=== PATIENT | female | born 1965 | race Caucasian/White ===

== ENCOUNTER → 2022-08-25 | Outpatient (CLI) | payer MEDICARE ==
--- NOTE | 2022-08-25 14:20 | CT ---
EXAMINATION TYPE: CT urogram wo/w con CT DLP: 7832.90 mGycm, Automated exposure control for dose reduction was used. DATE OF EXAM: 08/25/2022 11:33 AM COMPARISON: CT chest 07/21/2022 CLINICAL INDICATION:Female, 57 years old with history of D41.02 left renal mass, Early detection of k idney cancer TECHNIQUE: Urogram with imaging of the abdomen and pelvis. Coronal and sagittal reformats were performed. 2D and 3D reconstructions are performed to assist visualization of the urinary tract on a separate workstat ion. Contrast used:80 mL of Isovue 300 without and with IV Contrast, Oral contrast used: None. FINDINGS: LOWER CHEST: No significant findings. GENITOURINARY: RIGHT KIDNEY AND URETER: Simple appearing right renal cyst measuring 15 mm. No calculi. No hydronephr osis or hydroureter. No renal mass or other lesions. No urothelial lesions: no filling defect, dilati on, stricture or wall thickening. LEFT KIDNEY AND URETER: Solid left renal mass in the medial aspect of the kidney just below the left renal sinuses measuring 5.2 x 5.7 x 5.9 cm. No calculi. No hydronephrosis or hydroureter. No urotheli al lesions: no filling defect, dilation, stricture or wall thickening. URINARY BLADDER: Not optimally distended. Limited evaluation secondary to partial filling of the blad dewayne with excreted IV contrast. No calculi or obvious mass. REPRODUCTIVE: Unremarkable. ABDOMEN LIVER: Unremarkable. GALLBLADDER AND BILE DUCTS: The gallbladder surgically absent. PANCREAS: Unremarkable. SPLEEN: Unremarkable. ADRENAL GLANDS: Unremarkable. STOMACH AND BOWEL: . No evidence of bowel obstruction. Appendix is normal. PERITONEUM: No evidence of pneumoperitoneum, free fluid, or adenopathy. VASCULATURE: No evidence of aortic aneurysm. MUSCULOSKELETAL: No acute osseous abnormalities. Mild disc degeneration changes are present throughou t the thoracolumbar spine. LYMPH NODES: No gross evidence for lymphadenopathy. Prominent ac hepatis lymph node measuring up t or 15 mm in short axis. SOFT TISSUE/ABDOMINAL WALL: Unremarkable IMPRESSION: Exophytic left renal mass measuring up to 5.7 cm. Urologic consultation recommended. No evidence of s uspicious lymphadenopathy at this time.
== END | disposition home or self-care (01) ==
LOC: RADCTMAIN 09:42
PROVIDERS: ATTEND Urology
DX: D41.02 Neoplasm of uncertain behavior of left kidney (principal); N28.89 Other specified disorders of kidney and ureter
CPT/HCPCS: 82565; 84520; 74178; 36415; 74400; Q9967

== ENCOUNTER → 2022-08-28 | Outpatient (CLI) | payer MEDICARE ==
[2022-08-28 16:14] LABS: Basophils # (A) 0.08 X 10*3/uL (0.00-0.10); Basophils % (A) 0.6 %; Eosinophils # (A) 0.39 X 10*3/uL (0.04-0.35); Eosinophils % (A) 3.2 %; HCT 44.4 % (37.2-46.3); HGB 14.7 g/dL (12.0-15.0); Immature Grans, Automated 0.5 %; Lymphocytes # (A) 2.39 X 10*3/uL (0.90-5.00); Lymphocytes % (A) 19.3 %; MCH 29.8 pg (27.0-32.0); MCHC 33.1 g/dL (32.0-37.0); MCV 90.1 fL (80.0-97.0); Monocytes # (A) 0.59 X 10*3/uL (0.20-1.00); Monocytes % (A) 4.8 %; NRBC Per 100 WBC 0 /100 WBCS (0.0-0.0); Neutrophils # (A) 8.87 X 10*3/uL (1.80-7.70); Neutrophils % (A) 71.6 %; Platelet Count 334 X 10*3/uL (140-440); RBC 4.93 X 10*6/uL (4.10-5.20); RDW 14.6 % (11.5-14.5); WBC 12.38 X 10*3/uL (4.50-10.00)
[2022-08-28 16:20] LABS: African American GFR (CKD) 60.8 (60.0-200.0); BUN/Creat Ratio 17.18 Ratio (12.00-20.00); Blood Urea Nitrogen 20.1 mg/dL (9.0-27.0); Calcium 9.8 mg/dL (8.7-10.3); Carbon Dioxide 25.4 mmol/L (20.0-27.5); Non-African American GFR(CKD) 52.4 (60.0-200.0)
[2022-08-28 18:27] LABS: Appearance,Urine Clear (Clear); Bilirubin,Urine Negative (Negative); Blood,Urine Negative (Negative); Color,Urine Yellow (Yellow); Ketones,Urine Negative (Negative); Nitrite,Urine Negative (Negative); PH, Urine 5.5 (5.0-8.0); Urobilinogen,Urine 0.2 (0.2,1.0)
[2022-08-28 18:33] LABS: Bacteria,Urine None Seen /HPF (None Seen)
== END | disposition home or self-care (01) ==
LOC: LABPAT 10:49
PROVIDERS: ATTEND Urology
DX: Z01.812 Encounter for preprocedural laboratory examination (principal); D41.02 Neoplasm of uncertain behavior of left kidney; R31.29 Other microscopic hematuria
CPT/HCPCS: 80048; 81001; 85025; 86850; 86900; 86901

== ENCOUNTER 2022-08-31 08:30 | Inpatient (IN) | payer MEDICARE ==
[2022-08-29 15:12] VITALS: BMI 45.4
[~2022-08-31 08:30] MED LIST: ceFAZolin 3 GM in SODIUM CHLORIDE 0.9% 100 ML IVPB PRN
[2022-08-31] MEDS ORDERED: LACTATED RINGERS 1,000 ML IV ONE ×2 (09:00)
[2022-08-31 09:37] LABS: Glucose,Whole Blood 133 mg/dL (70-110)
[2022-08-31] MEDS ORDERED: ONDANSETRON 4 MG/2 ML VIAL ONE (09:41)
--- NOTE | 2022-08-31 09:58 | P.HPIHPCON ---
History of Present Illness H&P Date: 08/31/22 Chief Complaint: left renal mass This is a 57 yo female with hx of 5.7 cm left renal mass. Discussed with her given this finding it is Highly concerning for renal cell carcinoma. Discussed with her the mass is fairly large and hilar in location and not amenable to a partial nephrectomy. . Discussed with her the risk which includes but not limited to bleeding, infection, injury to nearby organs which includes the spleen, pancreas, bowel. Risk of anesthesia was discussed with her. Discussed risk of heart attack, stroke, blood clots in even loss of life. Discussed with her potential of needing hemodialysis in the short-term and long-term. Discussed also the need a postoperative surveillance. Discussed also potential this could be a benign pathology. She understood all the risk and agreed Consent for Procedure: I have explained the operation/procedure to the patient, including the risks, benefits, side effects, alternative therapies (including not receiving the proposed treatment or service), the likelihood of the patient achieving his/her goals, and potential recuperation problems for the procedure/sedation/analgesia, as well as any blood products, if indicated. I also explained to the patient the risks, benefits and side effects of the alternatives, as well as the risks related to not receiving the proposed procedure, care, treatment, or services. Past Medical History Past Medical History: CVA/TIA, Hyperlipidemia, Hypertension, Pneumonia, Sleep Apnea/CPAP/BIPAP Additional Past Medical History / Comment(s): mass left kidney, increased SOB over last 2 years after having pneumonia with exertion,states 'left knee feels like its going to go out and almosts falls"-does not use any assistive devices.uses cpap,metabolic syndrome-insulin resistance,2009 CVA-no residual,kidney stones History of Any Multi-Drug Resistant Organisms: None Reported Past Surgical History: Cholecystectomy, Hysterectomy Additional Past Surgical History / Comment(s): kidney stone procedure,sinus surgery Past Anesthesia/Blood Transfusion Reactions: No Reported Reaction Additional Past Anesthesia/Blood Transfusion Reaction / Comment(s): no hx blood transfusion Smoking Status: Current every day smoker - Past Family History Mother Family Medical History: COPD Additional Family Medical History / Comment(s): with COPD Sister(s) Family Medical History: Cancer Additional Family Medical History / Comment(s): 1 sister brain CA. 1 sister CVA. 1 sister skin Father Family Medical History: Cancer Additional Family Medical History / Comment(s): skin Medications and Allergies Home Medications Medication Instructions Recorded Confirmed Type Aspirin 81 mg PO DAILY 08/29/22 08/31/22 History Atorvastatin [Lipitor] 20 mg PO HS 08/29/22 08/31/22 History FLUoxetine HCL [PROzac] 20 mg PO QAM 08/29/22 08/31/22 History Gabapentin 1,200 mg PO QAM 08/29/22 08/31/22 History Gabapentin 1,800 mg PO HS 08/29/22 08/31/22 History Glucosamine/Chondr Landaverde A Sod [Osteo 1 tab PO DAILY 08/29/22 08/31/22 History Bi-Flex Caplet] Losartan Potassium [Cozaar] 100 mg PO QAM 08/29/22 08/31/22 History Montelukast Sodium [Singulair] 10 mg PO HS 08/29/22 08/31/22 History Multivitamins, Thera [Multivitamin 1 tab PO DAILY 08/29/22 08/31/22 History (formulary)] [place]-3/Dha/Epa/Fish Oil [Fish Oil 1 each PO BID 08/29/22 08/31/22 History 1,000 mg Softgel] Omeprazole 40 mg PO HS 08/29/22 08/31/22 History lamoTRIgine [LaMICtal] 100 mg PO QAM 08/29/22 08/31/22 History metFORMIN HCL [Glucophage] 500 mg PO QAM 08/29/22 08/31/22 History Allergies Allergy/AdvReac Type Severity Reaction Status Date / Time bee venom protein (honey bee) Allergy Anaphylaxis Verified 08/31/22 09:08 [place] Allergy facial Uncoded 08/31/22 09:08 [place] Surgical - Exam - General no distress, no pain - Eyes normal ocular movement, no pale - ENT normal nares, normal mucosa - Abdomen Abdomen: soft, non tender Results - Labs Abnormal Lab Results - Last 24 Hours (Table) 08/31/22 Range/Units 09:35 POC Glucose (mg/dL) 133 H (70-110) mg/dL Assessment and Plan Assessment: OR for robotic left radical nephrectomy
[2022-08-31] MEDS ORDERED: ONDANSETRON 4 MG/2 ML VIAL IVP PRN (10:02)
[2022-08-31] MEDS ORDERED: MIDAZOLAM 2 MG/2 ML VIAL IVP ONE (10:06)
[2022-08-31] MEDS ORDERED: fentaNYL (PF) 50 MCG/ML 2 ML AMP IVP ONE (10:06)
[2022-08-31] MEDS ORDERED: NEOSTIGMINE 1 MG/ML 10 ML VIAL ONE (10:15)
[2022-08-31] MEDS ORDERED: SUCCINYLCHOLINE CHLORIDE 200 MG/10 ML VIAL IV ONE (10:15)
[2022-08-31] MEDS ORDERED: PROPOFOL 10 MG/ML 20 ML VIAL IV ONE (10:15)
[2022-08-31] MEDS ORDERED: GLYCOPYRROLATE 0.2 MG/ML 2 ML VIAL ONE (10:15)
[2022-08-31] MEDS ORDERED: ROCURONIUM 10 MG/ML (5 ML VIAL) IV ONE (10:15)
[2022-08-31] MEDS ORDERED: MIDAZOLAM 2 MG/2 ML VIAL ONE (10:15)
[2022-08-31] MEDS ORDERED: fentaNYL (PF) 50 MCG/ML 2 ML AMP ONE (10:15)
[2022-08-31] MEDS ORDERED: ePHEDrine 50 MG/ML 1 ML VIAL ONE (10:15)
[2022-08-31] MEDS ORDERED: ROPIVACAINE 5 MG/ML 30 ML VIAL ONE (10:15)
[2022-08-31] MEDS ORDERED: LIDOCAINE 2% INJ 20 MG/ML (2 ML VIAL) ONE (10:15)
[2022-08-31] MEDS ORDERED: DEXAMETHASONE SOD PHOSPHATE 4 MG/ML 1 ML VIAL IVP ONE (10:17)
[2022-08-31] MEDS ORDERED: ONDANSETRON 4 MG/2 ML VIAL IVP ONE (10:17)
[2022-08-31] MEDS ORDERED: BUPIVACAINE (PF) 0.5% 30 ML VIAL SQ ONE ×2 (10:48→12:33)
--- NOTE | 2022-08-31 12:29 | P.ANPRN ---
Procedure Note - Anesthesia - Nerve Block Performed Bilateral Erector Spinae Single Time Out Performed: Yes (1005) Date of Procedure: 08/31/22 Procedure Start Time: 10:06 Procedure Stop Time: 10:12 Location of Patient: PreOp Indication: Acute Post-Operative Pain, Requested by Surgeon Specifically requested for management of pain by : Bear Garcia Sedation Type: Sedate with meaningful contact maintained Preparation: Sterile Prep Position: Prone Catheter: None Needle Types: Pajunk Needle Gauge: 21 Ultrasound used to visualize needle placement: Yes Ultrasound used to observe medication spread: Yes Injectate: 0.5% Ropivacaine (see comment for volume) (20cc + 10cc nacl pf each side) Blood Aspirated: No Pain Paresthesia on Injection Noted: No Resistance on Injection: Normal Image Stored and Saved: Yes Events: Uneventful and Well Tolerated
--- NOTE | 2022-08-31 12:32 | P.OP ---
Date of Procedure: 08/31/22 Preoperative Diagnosis: Left renal mass Postoperative Diagnosis: same Procedure(s) Performed: Robotic left radical nephrectomy Implants: none Anesthesia: VERONICA Surgeon: Bear Garcia Estimated Blood Loss (ml): 50 Pathology: other (left kidney) Condition: stable Disposition: PACU Indications for Procedure: This is a 57 yo female with hx of 5.7 cm left renal mass. Discussed with her given this finding it is Highly concerning for renal cell carcinoma. Discussed with her the mass is fairly large and hilar in location and not amenable to a partial nephrectomy. . Discussed with her the risk which includes but not limited to bleeding, infection, injury to nearby organs which includes the spleen, pancreas, bowel. Risk of anesthesia was discussed with her. Discussed risk of heart attack, stroke, blood clots in even loss of life. Discussed with her potential of needing hemodialysis in the short-term and long-term. Discussed also the need a postoperative surveillance. Discussed also potential this could be a benign pathology. She understood all the risk and agreed Description of Procedure: The patient was taken to the operating room . General anesthesia was induced. She was prepped and draped in sterile fashion, she was placed in modified flank position . All pressure points were padded. The abdominal insufflation was achieved with the Veress needle. A 8 mm camera port was placed. Robotic trocars and urgent care physician assistant ports were placed under direct vision. The robot was docked into place. The colon was mobilized medially by incising along the white line of [place]. Next the spleen and the pancrease were mobilized. Once the bowel, spleen and pancreas were mobilized. At this time the gonadal vessel was visualized. Once the gonadal vessel and ureter was visualized , next after the psoas plane was developed the ureter and gonadal vessel was retracted anteriorly off the psoas muscle. Dissection proceeded cranially towards the renal hilum. The upper pole attachments were dissected. Care was taken to safely mobilize the kidney free of all visceral structures.The renal vessels were dissected. At this point the renal vessels were exposed. Next the renal hilum was ligated using the vascular stapler. The adrenal gland was mobilized. Lateral and remaining kidney attachments were released. The ureter was dissected further distally. The ureter was ligated using the vascular stapler. The kidney was placed in an Endo Catch bag. Hemostatic agent were applied to the surgical field. The robot was then de-docked and the specimen was then removed by extending the urgent care physician assistant port. Fascia was closed with one layer using #1 PDS, Skin was closed with subcuticular sutures and dermabond. The patient was awoken from general anesthesia in stable condition. Please refer to the final pathology report for final diagnosis
[2022-08-31] MEDS ORDERED: ALBUTEROL NEBULIZED 2.5 MG/3 ML INHALATION ONE (12:52)
[2022-08-31] MEDS ORDERED: DEXAMETHASONE SOD PHOSPHATE 10 MG/ML 1 ML VIAL IVP ONE (13:09)
[2022-08-31] MEDS ORDERED: MEPERIDINE 50 MG/ML SYRINGE IVP ONE ×2 (13:29→14:02)
[2022-08-31 16:17] LABS: Glucose,Whole Blood 132 mg/dL (70-110)
[2022-08-31] MEDS: HEPARIN SODIUM,PORCINE/PF 5,000 UNIT/0.5 ML SYRINGE SQ SCH ×2 (17:16→23:22)
[2022-08-31] MEDS: GABAPENTIN 300 MG CAP PO SCH (20:43)
[2022-08-31] MEDS: HYDROmorphone 1 MG/ML 1 ML SYRINGE IVP PRN (20:44)
[2022-08-31] MEDS: PANTOPRAZOLE 40 MG TABLET PO SCH (20:44)
[2022-08-31] MEDS: ATORVASTATIN 20 MG TAB PO SCH (20:44)
[2022-08-31] MEDS: MONTELUKAST 10 MG TAB PO SCH (20:44)
[2022-08-31 20:56] LABS: Glucose,Whole Blood 182 mg/dL (70-110)
[2022-09-01] MEDS: HYDROmorphone 1 MG/ML 1 ML SYRINGE IVP PRN ×2 (00:20→06:09)
[2022-09-01 06:56] LABS: Glucose,Whole Blood 147 mg/dL (70-110)
[2022-09-01] MEDS ORDERED: metFORMIN 500 MG TAB PO SCH (07:30)
[2022-09-01] MEDS: GABAPENTIN 400 MG CAP PO SCH (08:02)
[2022-09-01] MEDS: LOSARTAN 50 MG TAB PO SCH (08:02)
[2022-09-01] MEDS: HEPARIN SODIUM,PORCINE/PF 5,000 UNIT/0.5 ML SYRINGE SQ SCH ×2 (08:02→16:01)
--- NOTE | 2022-09-01 08:02 | P.PN ---
Progress Note - Text Progress Note Date: 09/01/22 The patient is in her first postoperative day from a robotic-assisted left radical nephrectomy. She is feeling relatively well but still some discomfort. She has not ambulated. She does not fill she's ready to be discharged home. Her abdomen is soft. Urine is clear. Vital signs are stable. I will discontinue her Reid and IV fluids. We'll place on oral pain medicine. We'll observe her another 24 hours.
[2022-09-01] MEDS: FLUoxetine HCL 20 MG CAP PO SCH (08:03)
[2022-09-01] MEDS: lamoTRIgine 100 MG TAB PO SCH (08:03)
[2022-09-01] MEDS ORDERED: BENZOCAINE/MENTHOL LOZENG 1 EACH LOZENGE MUCOUS MEM PRN (09:57)
[2022-09-01 10:48] LABS: HCT 41.7 % (37.2-46.3); HGB 12.9 g/dL (12.0-15.0); MCH 28.9 pg (27.0-32.0); MCHC 30.9 g/dL (32.0-37.0); MCV 93.5 fL (80.0-97.0); Mean Platelet Volume 9.2 fL (9.5-12.2); NRBC Per 100 WBC 0 /100 WBCS (0.0-0.0); Platelet Count 304 X 10*3/uL (140-440); RBC 4.46 X 10*6/uL (4.10-5.20); WBC 18.17 X 10*3/uL (4.50-10.00)
[2022-09-01 11:13] LABS: African American GFR (CKD) 25.5 (60.0-200.0); Anion Gap 17.1 mmol/L (10.00-18.00); BUN/Creat Ratio 14.29 Ratio (12.00-20.00); Blood Urea Nitrogen 34.3 mg/dL (9.0-27.0); Calcium 9.3 mg/dL (8.7-10.3); Carbon Dioxide 20.9 mmol/L (20.0-27.5); Potassium 5.2 mmol/L (3.5-5.5)
[2022-09-01 11:22] LABS: Glucose,Whole Blood 127 mg/dL (70-110)
[2022-09-01] MEDS: HYDROcodone/APAP 5-325MG 1 EACH TAB PO PRN ×2 (12:50→19:54)
[2022-09-01 16:19] LABS: Glucose,Whole Blood 110 mg/dL (70-110)
[2022-09-01] MEDS: PANTOPRAZOLE 40 MG TABLET PO SCH (19:54)
[2022-09-01] MEDS: GABAPENTIN 300 MG CAP PO SCH (19:54)
[2022-09-01] MEDS: MONTELUKAST 10 MG TAB PO SCH (19:54)
[2022-09-01] MEDS: ATORVASTATIN 20 MG TAB PO SCH (19:54)
[2022-09-01 20:00] LABS: Glucose,Whole Blood 136 mg/dL (70-110)
[2022-09-01 23:03] VITALS: PULSE 65
[2022-09-02] MEDS: HEPARIN SODIUM,PORCINE/PF 5,000 UNIT/0.5 ML SYRINGE SQ SCH ×2 (00:02→08:11)
[2022-09-02 06:41] LABS: Glucose,Whole Blood 112 mg/dL (70-110)
[2022-09-02 07:45] VITALS: BP 141/76; RESP 18; TEMP 98
[2022-09-02] MEDS: lamoTRIgine 100 MG TAB PO SCH (08:12)
[2022-09-02] MEDS: FLUoxetine HCL 20 MG CAP PO SCH (08:12)
[2022-09-02] MEDS: GABAPENTIN 400 MG CAP PO SCH (08:12)
[2022-09-02] MEDS: LOSARTAN 50 MG TAB PO SCH (08:12)
[2022-09-02] MEDS: HYDROcodone/APAP 5-325MG 1 EACH TAB PO PRN (08:12)
--- NOTE | 2022-09-02 10:04 | P.DS ---
Providers Date of admission: 08/31/22 08:30 Attending physician: Bear Garcia MD Primary care physician: Benita Kaur [place] [facility] Course: The patient was admitted to the hospital 08/31/22 for a robotic-assisted left radical nephrectomy. She has done well postoperatively. Her pain is been controlled. Her diet is been advanced. She was ambulating. Her wound looks good. She'll be discharged home. She'll be on a regular diet. Activities Limited. She's been encouraged to walk up. A prescription of [place] has been given. She'll follow up in the office on September 13. Patient Condition at Discharge: Good Plan - Discharge Summary Discharge Rx Participant: Yes New Discharge Prescriptions: New HYDROcodone/APAP 5-325MG [[place] 5-325] 1 tab PO Q4HR PRN #14 tab PRN Reason: Pain No Action Gabapentin 1,800 mg PO HS Gabapentin 1,200 mg PO QAM Atorvastatin [Lipitor] 20 mg PO HS Omeprazole 40 mg PO HS [place]-3/Dha/Epa/Fish Oil [Fish Oil 1,000 mg Softgel] 1 each PO BID Glucosamine/Chondr Landaverde A Sod [Osteo Bi-Flex Caplet] 1 tab PO DAILY lamoTRIgine [LaMICtal] 100 mg PO QAM Losartan Potassium [Cozaar] 100 mg PO QAM Aspirin 81 mg PO DAILY Montelukast Sodium [Singulair] 10 mg PO HS Multivitamins, Thera [Multivitamin (formulary)] 1 tab PO DAILY metFORMIN HCL [Glucophage] 500 mg PO QAM FLUoxetine HCL [PROzac] 20 mg PO QAM Discharge Medication List Aspirin 81 mg PO DAILY 08/29/22 [History] Atorvastatin [Lipitor] 20 mg PO HS 08/29/22 [History] FLUoxetine HCL [PROzac] 20 mg PO QAM 08/29/22 [History] Gabapentin 1,200 mg PO QAM 08/29/22 [History] Gabapentin 1,800 mg PO HS 08/29/22 [History] Glucosamine/Chondr Landaverde A Sod [Osteo Bi-Flex Caplet] 1 tab PO DAILY 08/29/22 [History] Losartan Potassium [Cozaar] 100 mg PO QAM 08/29/22 [History] Montelukast Sodium [Singulair] 10 mg PO HS 08/29/22 [History] Multivitamins, Thera [Multivitamin (formulary)] 1 tab PO DAILY 08/29/22 [History ] [place]-3/Dha/Epa/Fish Oil [Fish Oil 1,000 mg Softgel] 1 each PO BID 08/29/22 [History] Omeprazole 40 mg PO HS 08/29/22 [History] lamoTRIgine [LaMICtal] 100 mg PO QAM 08/29/22 [History] metFORMIN HCL [Glucophage] 500 mg PO QAM 08/29/22 [History] HYDROcodone/APAP 5-325MG [[place] 5-325] 1 tab PO Q4HR PRN #14 tab 09/02/22 [Rx] Follow up Appointment(s)/Referral(s): Bear Garcia MD [STAFF PHYSICIAN] - 1 Week Discharge Disposition: HOME SELF-CARE
--- NOTE | 2022-09-06 12:08 | CDI ---
Documentation Clarification Form Date: 09/06/2022 11:55:58 AM From: Guera Wilburn Admit Date: 08/31/2022 8:30:00 AM Patient Name: Selina Price Visit Number: [id number] Discharge Date: 09/02/2022 12:18:00 PM ATTENTION: The Clinical Documentation Specialists (CDI) and [facility] Coding Staff appreciate your assistance in clarifying documentation. Please respond to the clarification below the line at the bottom and electronically sign. The CDI & [facility] Coding staff will review the response and follow-up if needed. Please note: Queries are made part of the Legal Health Record. If you have any questions, please contact the author of this message via ITS. Dr. Bear Garcia The final diagnosis of the pathology report states Clear cell renal cell carcinoma, WHO grade 2 of the left kidney. Coding guidelines do not allow coding professionals to code based on pathology results; therefore, clarification is requested. History/risk factors: 57 year old female with a history of a 5.7 cm left renal mass concerning for carcinoma. Has a hx of CVA, Hyperlipidemia, HTN, Sleep Apnea Clinical Indicators: mass is fairly large and hilar in location, not amenable to a partial nephrectomy. Path report states Kidney, left radical nephrectomy: clear cell renal cell carcinoma, WHO grade 2. Tumor is confined to the kidney, margins negative. Treatment: robotic left radical nephrectomy Please clarify if you agree with the pathology report diagnosis of Renal Cell Carcinoma Left Kidney: [ X ] Yes [ ] No [ ] Other (please specify) [ ] Unable to determine MTDD
== END 2022-09-02 12:18 | disposition home or self-care (01) | DRG 658 ==
LOC: 2ORMAIN 08:30 → 4SSUR 14:38
PROVIDERS: ADMIT Urology; ATTEND Urology
PROC: 0TT14ZZ Resection of Left Kidney, Percutaneous Endoscopic Approach (ICD-10-PCS; principal; 2022-08-31 10:50)
PROC: 8E0W4CZ Robotic Assisted Procedure of Trunk Region, Percutaneous Endoscopic Approach (ICD-10-PCS; principal; 2022-08-31 10:50)
DX: C64.2 Malignant neoplasm of left kidney, except renal pelvis (principal); E88.81 Metabolic syndrome and other insulin resistance; E78.5 Hyperlipidemia, unspecified; I10 Essential (primary) hypertension; G47.30 Sleep apnea, unspecified; Z87.01 Personal history of pneumonia (recurrent); Z86.73 Personal history of transient ischemic attack (TIA), and cerebral infarction without residual deficits; Z79.82 Long term (current) use of aspirin; Z79.899 Other long term (current) drug therapy; Z79.84 Long term (current) use of oral hypoglycemic drugs
CPT/HCPCS: 64999; 76942; 80048; 85027; 86850; 86900; 86901; 88307; 94660; 94760

== ENCOUNTER → 2022-12-07 | Outpatient (CLI) | payer MEDICARE ==
--- NOTE | 2022-12-07 19:50 | US ---
EXAMINATION TYPE: US kidneys/renal and bladder DATE OF EXAM: 12/07/2022 COMPARISON: NONE CLINICAL INDICATION: Female, 57 years old with history of N18.31 CHR KIDNEY DISEASE; History renal CA , left kidney removed August 2022 EXAM MEASUREMENTS: Right Kidney: 11.4 x 5.6 x 5.4 cm Right Kidney: 1.8 x 1.4 x 1.6cm centrally located mid pole cyst. No hydronephrosis. Left Kidney: surgically absent Bladder: wnl Right Jet seen: yes IMPRESSION: Left kidney surgically absent. Right kidney shows no hydronephrosis. There is a centrally located mid pole cyst measuring 1.8 cm.
== END | disposition home or self-care (01) ==
LOC: RADUSWWP 14:02
PROVIDERS: ATTEND Internal Medicine
DX: N18.31 Chronic kidney disease, stage 3a (principal); N28.1 Cyst of kidney, acquired
CPT/HCPCS: 76770

== ENCOUNTER → 2023-03-13 | Outpatient (CLI) | payer MEDICARE ==
--- NOTE | 2023-03-13 13:33 | BD ---
EXAMINATION TYPE: Axial Bone Density DATE OF EXAM: 03/13/2023 CLINICAL HISTORY: 58 years old Female. ICD-10 CODE: Z12.31 Screening mammogram; Z78.0 Postmenopausal Height: 63 Weight: 278 FRAX RISK QUESTIONS: Secondary Osteoporosis: yes 3. Menopause before 45: yes renal cancer Current Tobacco Use: yes RISK FACTORS HISTORY OF: Postmenopausal woman: yes, at 42 Hyperparathyroidism: no Adrenal Insufficiency: no MEDICATIONS: Prednisone or other steroids: yes, inhaler for asthma and copd Additional Medications: bp meds, Prozac and gabapentin, hx of cancer, lt kidney, reflux meds, statin for cholesterol, senior multivitamin, Additional History: hypertension, anxiety, hx of renal ca, reflux, cholesterol, asthma copd EXAM MEASUREMENTS: Bone mineral densitometry was performed using the [employer] [place] System. Bone mineral density as measured about the Lumbar spine is: ----- L1-L4(G/cm2): 1.067 T Score Values are as follows: ----- L1: -0.9 ----- L2: -1.6 ----- L3: -1.1 ----- L4: -0.3 ----- L1-L4: -0.9 Z Score Values are as follows: ----- L1: -1.2 ----- L2: -1.9 ----- L3: -1.4 ----- L4: -0.6 ----- L1-L4: -1.2 Bone mineral density is her first bone density, baseline study. Bone mineral density about the R hip (g/cm2): 0.987 Bone mineral density about the L hip (g/cm2): 0.970 T Score values are as follows: -----R Neck: -0.7 -----L Neck: -1.4 -----R Total: -0.2 -----L Total: -0.3 Z Score values are as follows: -----R Neck: -0.4 -----L Neck: -1.0 -----R Total: -0.3 -----L Total: -0.4 Bone mineral density first bone density, baseline study. FRAX%s: The graph provided illustrates a 8.8% chance for a major osteoporotic fx and a 1.0% chance fo r the hips probability for fx in 10 years time. IMPRESSION: Osteopenia (T Score between -2.5 and -1). There is slightly increased risk of fracture and the patient may be considered for treatment. Re-Screen 2-5 years. NOTE: T-SCORE=SD OF THE YOUNG ADULT MEAN.
--- NOTE | 2023-03-14 09:15 | MM ---
Reason for Exam: Screening (asymptomatic). Last mammogram was performed 7 year(s) and 3 month(s) ago. Patient History: Menarche at age 12. Patient has no children. Left ovary removed at age 42. Hysterectomy at age 42. Other cancer, age 58. Maternal aunt had breast cancer. Risk Values: Asia 5 year model risk: 1.5%. NCI Lifetime model risk: 9.7%. Prior Study Comparison: 10/23/2014 Bilateral Screening Mammogram, Unknown. 12/07/2015 Bilateral Screening Mammogram, Unknown. Tissue Density: The breast tissue is almost entirely fat. Findings: Analyzed By CAD. There is no suspicious group of microcalcifications or new suspicious mass. Overall Assessment: Negative, BI-RAD 1 Management: Screening Mammogram of both breasts in [address] [facility] will attempt to contact patient to return for supplemental views and ultrasound if indicated. Patient should continue monthly self-breast exams. A clinical breast exam by your physician is recommended on an annual basis. This exam should not preclude additional follow-up of suspicious palpable abnormalities. Note on Asia scores and lifetime risk: 1. A Asia score greater than 3% is considered moderate risk. If this is the case, consider specialist referral to assess eligibility for a risk reducing agent. 2. If overall lifetime risk for the development of breast cancer is 20% or higher, the patient may qualify for future screening with alternating mammogram and breast MRI. Electronically signed and approved by: Noble Krause DO
== END | disposition home or self-care (01) ==
LOC: RADMAMWWP 08:41
PROVIDERS: ATTEND Family Medicine
DX: Z12.31 Encounter for screening mammogram for malignant neoplasm of breast (principal); M85.89 Other specified disorders of bone density and structure, multiple sites; Z78.0 Asymptomatic menopausal state; Z80.3 Family history of malignant neoplasm of breast
CPT/HCPCS: 77063; 77067; 77080

== ENCOUNTER → 2023-03-15 | Outpatient (CLI) | payer MEDICARE ==
[2023-03-15 11:38] LABS: African American GFR (CKD) 33 (>60 ml/min/1.73 sqM); Blood Urea Nitrogen 35 mg/dL (7-17); Non-African American GFR(CKD) 29 (>60 ml/min/1.73 sqM)
--- NOTE | 2023-03-15 14:40 | CT ---
EXAMINATION TYPE: CT ChestAbdPelvis wo con DATE OF EXAM: 03/15/2023 INDICATION: follow up ca COMPARISON: 08/25/2022 CT DLP: 1848 mGycm CONTRAST: Performed with Oral Contrast and with IV Contrast, patient injected with mL of . TECHNIQUE: Axial images at 5 mm thick sections. Reconstructed images in the coronal plane. Delayed images through the kidneys. FINDINGS: CT CHEST: Portion of the thyroid visualized is normal. There is diffuse groundglass opacities present bilaterally. Correlate for pulmonary edema. There is a punctate density within the lateral right mid lung, series 4 image 26 measuring 0.6 cm. Follow-up is recommended. There is a 1.7 cm lymph node in the pretracheal space. A 0.9 cm lymph node is in the aortic arch leve l. The ascending aorta diameter at the level of the main pulmonary artery is 3.7 cm. The main pulmonary artery diameter at the bifurcation is 4.1 cm. Correlate for pulmonary hypertension CT ABDOMEN: Liver: Normal Spleen: Normal Pancreas: Normal Adrenal glands: The adrenal glands are normal. Gallbladder: Surgically absent Kidneys: No recurrent mass is in the left renal bed are evident. The left kidney is surgically absent . Couple of punctate calcifications without obstruction may be within the right cortical medullary ju nction. Aorta: Vascular calcification is within the aorta. Inferior vena cava: Normal. CT PELVIS: Loops of bowel within the abdomen and pelvis are normal. There are loops of bowel which are incom pletely distended or lack oral contrast limiting their evaluation. Appendix: Not identified. No dilated tubular structure or inflammatory change is evident. Urinary bladder: Normal. Genitourinary structures: Uterus is not identified. Adnexa appear unremarkable. Osseous structures: No suspicious lytic or sclerotic lesions. No expansile lesions are evident. Facet degenerative changes are in the lower lumbar spine. IMPRESSION: 1. Groundglass opacities throughout bilateral lung he. Color for pulmonary edema. 2. Consider pulmonary hypertension. 3. 0.6 cm nodular density lateral right lung. Follow-up exam in 6 months is recommended. 4. Postnephrectomy changes left renal bed. No recurrent masses in the renal bed evident.
== END | disposition home or self-care (01) ==
LOC: RADCTMAIN 09:19
PROVIDERS: ATTEND Internal Medicine
DX: C64.2 Malignant neoplasm of left kidney, except renal pelvis (principal); J98.4 Other disorders of lung; R91.8 Other nonspecific abnormal finding of lung field; J81.1 Chronic pulmonary edema; Z90.5 Acquired absence of kidney
CPT/HCPCS: 36415; 71250; 74176; 82565; 84520

== ENCOUNTER → 2023-03-27 | Outpatient (CLI) | payer MEDICARE ==
[2023-03-28 08:38] LABS: Creatinine 24 Hour,Urine 2.04 g/24hr (0.80-1.80)
== END | disposition home or self-care (01) ==
LOC: LABWHC1 11:42
PROVIDERS: ATTEND Family Medicine
DX: N18.31 Chronic kidney disease, stage 3a (principal)
CPT/HCPCS: 81050; 82570; 84156

== ENCOUNTER → 2023-07-02 | Outpatient (CLI) | payer MEDICARE ==
[2023-07-02 12:59] LABS: Creatinine,Urine Random 86.1 mg/dL; Protein/Creatinine Ratio,Urine 0.418
[2023-07-02 15:35] LABS: Appearance,Urine Clear (Clear); Bilirubin,Urine Negative (Negative); Blood,Urine Trace (Negative); Color,Urine Yellow (Yellow); Ketones,Urine Negative (Negative); Nitrite,Urine Negative (Negative); PH, Urine 6.5; Specific Gravity,Urine 1.009 (1.001-1.030); Urobilinogen,Urine 0.2 E.U./DL
[2023-07-02 15:39] LABS: Albumin 4.3 g/dL (3.8-4.9); BUN/Creat Ratio 16.16 Ratio (12.00-20.00); Blood Urea Nitrogen 30.7 mg/dL (9.0-27.0); Carbon Dioxide 21.9 mmol/L (21.6-31.8); Chloride 103 mmol/L (96-109); Glucose 118 mg/dL (70-110); Phosphorus 3.4 mg/dL (2.4-5.1); Sodium 139 mmol/L (135-145)
[2023-07-02 15:43] LABS: Bacteria,Urine None Seen (None Seen)
[2023-07-03 00:06] LABS: Urine Creatinine 64.3 mg/dL (28.0-217.0)
== END | disposition home or self-care (01) ==
LOC: LABWHC1 09:32
PROVIDERS: ATTEND Internal Medicine
DX: N18.30 Chronic kidney disease, stage 3 unspecified (principal); N39.0 Urinary tract infection, site not specified; R80.9 Proteinuria, unspecified
CPT/HCPCS: 36415; 80069; 81001; 82043; 82570; 84156

== ENCOUNTER → 2023-09-14 | Outpatient (CLI) | payer MEDICARE ==
[2023-09-14 12:39] LABS: African American GFR (CKD) 26 (>60 ml/min/1.73 sqM); Blood Urea Nitrogen 32 mg/dL (7-17); Non-African American GFR(CKD) 22 (>60 ml/min/1.73 sqM)
--- NOTE | 2023-09-15 21:14 | CT ---
EXAMINATION TYPE: CT chest wo con DATE OF EXAM: 09/14/2023 COMPARISON: HISTORY: Malignant neoplasm of LT kidney. Observe for mets. CT DLP: 646.20 mGycm, Automated exposure control for dose reduction was used. CONTRAST: None TECHNIQUE: Axial images were obtained at 5 mm thick sections. Reconstructed images are reviewed on [employer] computer in the coronal plane. FINDINGS: Portion of the thyroid visualized is normal. A faint 0.5 cm nodule medially within the right mid lung. Series 6 image 25. There is a 0.9 cm pleura l-based density posterior medial left lung. Series 6 image 32. Faint density and groundglass opacity measuring 0.5 cm cyst in the medial right mid lung. Series 6 image 32. Scattered groundglass opacity to the bilateral he. The 6 mm nodule within the lateral right lung appears smaller than comparison. The density within the posterior medial left lung base is smaller than comparison. No enlarged mediastinal or hilar adenopathy is evident. The ascending aorta diameter at the level o f the main pulmonary artery is 4.0 cm. The main pulmonary artery diameter at the bifurcation is 3.6 cm. Mild coronary artery calcification is present. Limited CT sections are obtained through the upper abdomen. Abdomen is essentially unremarkable. IMPRESSION: 1. Scattered small bilateral lung nodules and groundglass opacities. Follow-up CT chest in 6 months i s recommended.
== END | disposition home or self-care (01) ==
LOC: RADCTMAIN 11:49
PROVIDERS: ATTEND Internal Medicine
DX: C64.2 Malignant neoplasm of left kidney, except renal pelvis (principal); R91.8 Other nonspecific abnormal finding of lung field; Z71.3 Dietary counseling and surveillance
CPT/HCPCS: 71250; 82565; 84520

== ENCOUNTER → 2023-09-25 | Outpatient (CLI) | payer MEDICARE | END | disposition home or self-care (01) | LOC: LABWHC1 10:29 | PROVIDERS: ATTEND Internal Medicine | DX: Z53.9 Procedure and treatment not carried out, unspecified reason (principal) ==

== ENCOUNTER → 2023-09-25 | Outpatient (CLI) | payer MEDICARE ==
--- NOTE | 2023-09-25 11:11 | CA ---
Exercise Stress Test Report Name: Selina Price Exam Date: 09/25/2023 09:28 Exam Location: [place] Stress Ht (in): 64 Wt (lb): 275 BSA: 2.24 Ordering Phys: Priya Mejia DO Referring Phys: Aggie Sunshine [facility] Technologist: Karla Gamez RDCS Age: 58 Gender: F : 1965 Procedure CPT: Indications: R07.9 CHEST PAIN ICD-10 Codes: Patient History: CHEST PAIN, DIFFICULTY IN BREATHING, PALPITATIONS, NUMBNESS IN FACE/NECK, HTN, TIA, HYPERCHOLESTEROLEMIA, FAMILY HX OF HEART DISEASE, CURRENT SMOKER, COPD Medications: Meds past 24 hrs: Pretest Chest Pain: STRESS TEST Demetrius Protocol Exercise Duration (min:sec): 02:[address] Depressions (mm): 0 Angina Score: 0 Cabrera Score: 2.85 Resting HR (bpm): 80 Peak HR (bpm): 140 Resting BP (mmHg): 102 / 68 Peak BP (mmHg): 155 / 66 MPHR: 164 Target HR: 139 % MPHR: 85 METS: 4.7 Total Dose: Peak Dose: Atropine: Double Product: 37843 BP Response: Stress Termination: TARGET HR/MAX EXERTION Stress Symptoms: DYSPNEA Stress Summary: The patient's target heart rate was achieved ECG ANALYSIS Resting ECG: Sinus rhythm. Normal conduction. No arrhythmias. Normal repolarization. Stress ECG: No ECG evidence of ischemia with exercise. CONCLUSIONS 1. Poor exercise tolerance 2. Normal electrocardiographic response to exercise with no evidence of exercise-induced ischemia Dr. Vijay Vogel MD (Electronically Signed) Final Date: 25 Sep 2023 11:10
--- NOTE | 2023-09-25 11:13 | CA ---
Transthoracic Echo Report Name: Selina Price Age: 58 Gender: F : 1965 Exam Date: 09/25/2023 08:41 Exam Location: [place] [facility] Ht (in): 64 Wt (lb): 275 Ordering Physician: Priya Mejia DO Attending/Referring Phys: Aggie Sunshine NPC Librarian Helper Ernestina Jimenes RDCS Procedure CPT: Indications: R07.9 CHEST PAIN Cardiac Hx: Technical Quality: Technically difficult study Contrast 1: Definity Total Dose (mL): 2 Contrast 2: Total Dose (mL): MEASUREMENTS (Male / Female) Normal Values 2D ECHO LVOT Diameter 2.0 cm Aortic Root Diameter 3.0 cm LV Diastolic Volume MOD BP 125.5 cm??? 67 - 155 / 56 - 104 cm??? LV Systolic Volume MOD BP 45.1 cm??? 22 - 58 / 19 - 49 cm??? LV Ejection Fraction MOD BP 64.0 % >= 55 % LV Cardiac Index MOD BP 2134.5 cm???/min???m??? LV Diastolic Volume MOD 4C 134.9 cm??? LV Systolic Volume MOD 4C 49.2 cm??? LV Ejection Fraction MOD 4C 63.6 % LV Cardiac Index MOD 4C 2277.1 cm???/min???m??? LV Diastolic Length 4C 8.4 cm LV Systolic Length 4C 6.2 cm LV Diastolic Volume MOD 2C 112.2 cm??? LV Systolic Volume MOD 2C 40.9 cm??? LV Ejection Fraction MOD 2C 63.5 % LV Cardiac Index MOD 2C 1893.4 cm???/min???m??? LV Diastolic Length 2C 8.0 cm LV Systolic Length 2C 6.1 cm Ascending Aorta Diameter 3.4 cm DOPPLER AV Peak Velocity 173.3 cm/s AV Peak Gradient 12.0 mmHg AV Mean Velocity 120.1 cm/s AV Mean Gradient 6.3 mmHg AV Velocity Time Integral 38.8 cm LVOT Peak Velocity 131.6 cm/s LVOT Peak Gradient 6.9 mmHg LVOT Velocity Time Integral 27.3 cm LVOT Stroke Volume 88.4 cm??? LVOT Stroke Volume Index 39.5 ml/m??? LVOT Cardiac Index 2349.2 cm???/min???m??? AV Area Cont Eq vti 2.3 cm??? AV Area Cont Eq pk 2.5 cm??? Mitral E Point Velocity 108.1 cm/s Mitral A Point Velocity 91.1 cm/s Mitral E to A Ratio 1.2 MV Deceleration Time 222.6 ms MV E' Velocity 7.6 cm/s Mitral E to MV E' Ratio 14.3 PV Peak Velocity 130.1 cm/s PV Peak Gradient 6.8 mmHg FINDINGS Left Ventricle Left ventricular ejection fraction is estimated at 55-60 %. Moderately increased left ventricular diastolic volume. Left ventricular wall thickness normal. No obvious regional wall motion abnormalities. Right Ventricle Normal right ventricular size and function. Unable to estimate the right ventricular systolic pressure. Right Atrium Right atrium not well visualized. Left Atrium Normal left atrial size. Mitral Valve Structurally normal mitral valve. No evidence for mitral valve prolapse. No mitral stenosis. Trace mitral regurgitation. Aortic Valve Aortic valve not well visualized. No aortic valve stenosis or regurgitation. Tricuspid Valve Structurally normal tricuspid valve. No tricuspid stenosis. No tricuspid regurgitation. Pulmonic Valve Pulmonic valve not well visualized. No pulmonic stenosis. Pericardium Trace pericardial effusion located anteriorly. Echo free space anterior to the right ventricle likely represents a fat pad. Aorta Normal size aortic root and proximal ascending aorta. CONCLUSIONS Technically difficult study. Definity ECHO contrast used for improved visualization of the endocardial borders (inadequate visualization of two or more contiguous segments). Normal limits close size and systolic function Valvular structures were not well-visualized Very limited Doppler study Previewed by: Dr. Vijay Vogel MD (Electronically Signed) Final Date: 25 Sep 2023 11:12
[2023-09-25 21:26] LABS: Albumin 4.6 g/dL (3.8-4.9); BUN/Creat Ratio 14.14 Ratio (12.00-20.00); Blood Urea Nitrogen 29.7 mg/dL (9.0-27.0); Calcium 9.8 mg/dL (8.7-10.3); Carbon Dioxide 19.7 mmol/L (21.6-31.8); Chloride 101 mmol/L (96-109); Glucose 128 mg/dL (70-110); Phosphorus 3.2 mg/dL (2.4-5.1); Potassium 3.8 mmol/L (3.5-5.5); Sodium 142 mmol/L (135-145)
[2023-09-25 21:35] LABS: Appearance,Urine Clear (Clear); Bilirubin,Urine Negative (Negative); Blood,Urine Negative (Negative); Color,Urine Yellow (Yellow); Ketones,Urine Negative (Negative); Nitrite,Urine Negative (Negative); Specific Gravity,Urine 1.017 (1.001-1.030); Urobilinogen,Urine 0.2 E.U./DL
== END | disposition home or self-care (01) ==
LOC: RADECHMAIN 08:21
PROVIDERS: ATTEND Family Medicine
DX: R07.9 Chest pain, unspecified (principal)
CPT/HCPCS: 93017; 93306; 80069; 81003; 82043; 82570; 36415; Q9957

== ENCOUNTER → 2023-10-02 | Outpatient (CLI) | payer MEDICARE ==
--- NOTE | 2023-10-04 08:21 | CT ---
EXAMINATION TYPE: CT abdomen pelvis wo con CT DLP: 1448.9 mGycm, Automated exposure control for dose reduction was used. DATE OF EXAM: 10/02/2023 8:50 AM COMPARISON: 03/15/2023 CLINICAL INDICATION:Female, 58 years old with history of C64.2 RENAL CELL CANCER; Renal Cell Cancer TECHNIQUE: Axial CT abdomen pelvis wo con;Sagittal and coronal reformats were created on a separate workstation. Contrast used: mL of , (none if empty) Oral contrast used: without Oral Contrast (none if empty) FINDINGS: LOWER CHEST: Resolution of prior groundglass opacities. Is mildly enlarged for size. ABDOMEN LIVER: Unremarkable GALLBLADDER AND BILE DUCTS: Gallbladder surgically removed. PANCREAS: Unremarkable. SPLEEN: Unremarkable. ADRENAL GLANDS: Unremarkable. KIDNEYS AND URETERS: Absent left kidney. No abnormal margin soft tissue in the surgical bed. Right ki dney is without evidence for hydronephrosis. Small 2 mm nonobstructing calculus. PELVIS BLADDER: Unremarkable REPRODUCTIVE: Unremarkable. ABDOMEN & PELVIS STOMACH AND BOWEL: No evidence of bowel obstruction. PERITONEUM/RETROPERITONEUM: No evidence of pneumoperitoneum or free fluid. VASCULATURE: No evidence of aortic aneurysm. MUSCULOSKELETAL: No acute osseous abnormalities LYMPH NODES: No gross evidence for lymphadenopathy. SOFT TISSUE/ABDOMINAL WALL: Diastases of the rectus abdominis. Umbilical hernia. IMPRESSION: Postsurgical changes of left kidney nephrectomy. No evidence for lymphadenopathy or recurrence.
== END | disposition home or self-care (01) ==
LOC: RADCTMAIN 08:27
PROVIDERS: ATTEND Internal Medicine
DX: C64.2 Malignant neoplasm of left kidney, except renal pelvis (principal); Z71.3 Dietary counseling and surveillance; Z90.5 Acquired absence of kidney
CPT/HCPCS: 74176

== ENCOUNTER → 2024-01-30 | Outpatient (CLI) | payer MEDICARE ==
[2024-01-30 15:54] VITALS: BP 132/74; PULSE 64; RESP 16; TEMP 98; BMI 45.9
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
[2024-01-30 17:29] LABS: Partial Thromboplastin Time 26.7 sec (22.0-30.0); Prothrombin Time 10.7 sec (10.0-12.5)
[2024-01-31 01:56] LABS: HCT 44.2 % (37.2-46.3); HGB 14.4 g/dL (12.0-15.0); MCH 29.3 pg (27.0-32.0); MCHC 32.6 g/dL (32.0-37.0); MCV 89.8 FL (80.0-97.0); NRBC Per 100 WBC 0 X 10*3/uL (0.00-0.01); Platelet Count 325 X 10*3/uL (140-440); RBC 4.92 X 10*6/uL (4.10-5.20); RDW 15.8 % (11.5-14.5); WBC 13.72 X 10*3/uL (4.50-10.00)
[2024-01-31 02:48] LABS: Prealbumin 30.1 mg/dL (18.0-42.0)
[2024-01-31 03:05] LABS: % Iron Saturation 17.14 (12.00-45.00); ALT 22 U/L (8-44); AST 20 U/L (13-35); Albumin 4.5 g/dL (3.8-4.9); Albumin/Globulin Ratio 1.61 Ratio (1.60-3.17); Alkaline Phosphatase 170 U/L (41-126); BUN/Creat Ratio 16.35 Ratio (12.00-20.00); Blood Urea Nitrogen 32.7 mg/dL (9.0-27.0); Calcium 9.7 mg/dL (8.7-10.3); Carbon Dioxide 21.9 mmol/L (21.6-31.8); Chloride 103 mmol/L (96-109); Chol/HDL Ratio 4.66 Ratio; Globulin 2.8 g/dL (1.6-3.3); Glucose 105 mg/dL (70-110); Iron 60 UG/DL (50-170); Magnesium 1.5 mg/dL (1.5-2.4); Phosphorus 3.3 mg/dL (2.4-5.1); Sodium 141 mmol/L (135-145); Total Bilirubin 0.3 mg/dL (0.3-1.2); Total Iron Binding Capacity 350 UG/DL (228-460); Total Protein 7.3 g/dL (6.2-8.2)
[2024-01-31 14:47] LABS: Zinc, Serum 138 ug/dL (60-130)
[2024-02-01 13:21] LABS: Vit B1(Thiamine) 150 ug/L (38-122)
[2024-02-02 09:44] LABS: Anabasine Urine <2.0 ng/mL (<2.0)
[2024-02-04 09:47] LABS: Vitamin A 95 ug/dL (38-106)
[2024-02-08 07:40] LABS: Selenium 110 mcg/L (63-160)
== END ==
LOC: BARWHC3 14:28
PROVIDERS: ATTEND Surgery Plastic and Reconstructive Surgery
DX: E66.01 Morbid (severe) obesity due to excess calories (principal); E89.1 Postprocedural hypoinsulinemia; D50.8 Other iron deficiency anemias; D50.9 Iron deficiency anemia, unspecified; K91.2 Postsurgical malabsorption, not elsewhere classified; E44.0 Moderate protein-calorie malnutrition; E45 Retarded development following protein-calorie malnutrition; K74.1 Hepatic sclerosis; E55.9 Vitamin D deficiency, unspecified; N19 Unspecified kidney failure; T56.894A Toxic effect of other metals, undetermined, initial encounter; K50.90 Crohn's disease, unspecified, without complications; Z68.42 Body mass index [BMI] 45.0-49.9, adult; Z91.030 Bee allergy status; Z91.018 Allergy to other foods
CPT/HCPCS: 84255; 84134; 84425; 80061; 80053; 82607; 82728; 82525; 82746; 83540; 83550; 83735; 84100; 84443; 84590; 84630; 85027; 85610; 85730; 82306; 83970; 83036; 80307; 93005; G0480; G0463; 80323; 99211

== ENCOUNTER 2024-03-10 07:48 | Day surgery (SDC) | payer MEDICARE ==
[2024-03-06 12:35] VITALS: BMI 47.2
[2024-03-10] MEDS: IV FLUID CONTINUATION 1,000 ML IV ONE (08:04)
--- NOTE | 2024-03-10 08:13 | P.GSHP ---
History of Present Illness H&P Date: 03/10/24 CHIEF COMPLAINT: GERD HISTORY OF PRESENT ILLNESS: The patient is a 59-year-old female who presents reports gastroesophageal reflux disease. Upper endoscopy was offered for further evaluation and management. PAST MEDICAL HISTORY: Please see list. PAST SURGICAL HISTORY: Please see list. MEDICATIONS: Please see list. ALLERGIES: Please see list. SOCIAL HISTORY: No illicit drug use FAMILY HISTORY: No reports of Crohn disease or ulcerative colitis. REVIEW OF ORGAN SYSTEMS: CONSTITUTIONAL: No reports of fevers or chills. GI: Denies any blood in stools or constipation. PHYSICAL EXAM: VITAL SIGNS: Stable GENERAL: Well-developed and pleasant in no acute distress. HEENT: No scleral icterus. Extraocular movements grossly intact. Moist buccal mucosa. NECK: Supple without lymphadenopathy. CHEST: Unlabored respirations. Equal bilateral excursions. CARDIOVASCULAR: Regular rate and rhythm. Distal 2+ pulses. ABDOMEN: Soft, nondistended. MUSCULOSKELETAL: No clubbing, cyanosis, or edema. ASSESSMENT: 1. Gastroesophageal reflux disease PLAN: 1. Recommend proceeding with an upper endoscopy Past Medical History Past Medical History: Cancer, CVA/TIA, GERD/Reflux, Hyperlipidemia, Hypertension, Pneumonia, Skin Disorder, Sleep Apnea/CPAP/BIPAP Additional Past Medical History / Comment(s): increased SOB over last 2 years after having pneumonia with exertion,states 'left knee feels like its going to go out and almosts falls"-does not use any assistive devices.uses cpap,metabolic syndrome-insulin resistance pre diabetic,2008 CVA-no residual,kidney stones, Left Kidney mass Cancer, psorasis History of Any Multi-Drug Resistant Organisms: None Reported Past Surgical History: Cholecystectomy, Hysterectomy Additional Past Surgical History / Comment(s): kidney stone procedure,sinus surgery, Left nephrectomy Past Anesthesia/Blood Transfusion Reactions: No Reported Reaction Additional Past Anesthesia/Blood Transfusion Reaction / Comment(s): no hx blood transfusion Past Psychological History: Anxiety, Bipolar, Depression Additional Psychological History / Comment(s): reports suicide attempt in 2021 with no cureent thoughts of self harm Smoking Status: Current every day smoker Past Alcohol Use History: None Reported Additional Past Alcohol Use History / Comment(s): started smoking at age 23- <1ppd Past Drug Use History: None Reported - Past Family History Mother Family Medical History: COPD Additional Family Medical History / Comment(s): from COPD Sister(s) Family Medical History: Cancer Additional Family Medical History / Comment(s): 1 sister brain CA. 1 sister CVA. 1 sister skin Father Family Medical History: Cancer Additional Family Medical History / Comment(s): skin Medications and Allergies Home Medications Medication Instructions Recorded Confirmed Type Aspirin 81 mg PO DAILY 08/29/22 03/06/24 History Atorvastatin [Lipitor] 20 mg PO HS 08/29/22 03/10/24 History FLUoxetine HCL [PROzac] 60 mg PO QAM 08/29/22 03/10/24 History Gabapentin 1,200 mg PO HS 08/29/22 03/10/24 History Gabapentin 600 mg PO QAM 08/29/22 03/10/24 History Losartan Potassium [Cozaar] 100 mg PO QAM 08/29/22 03/10/24 History Montelukast Sodium [Singulair] 10 mg PO HS 08/29/22 03/10/24 History Multivitamins, Thera [Multivitamin 1 tab PO DAILY 08/29/22 03/06/24 History (formulary)] Fenton-3/Dha/Epa/Fish Oil [Fish Oil 1 each PO HS 08/29/22 03/06/24 History 1,000 mg Softgel] Omeprazole 40 mg PO HS 08/29/22 03/10/24 History lamoTRIgine [LaMICtal] 100 mg PO QAM 08/29/22 03/10/24 History Chlorthalidone 50 mg PO DAILY 01/30/24 03/10/24 History Empagliflozin [Jardiance] 1 tab PO DAILY 01/30/24 03/10/24 History Ubidecarenone [Co Q-10] 100 mg PO DAILY 01/30/24 03/06/24 History Black Seed Oil 1,500 mg PO DAILY 03/06/24 03/06/24 History Allergies Allergy/AdvReac Type Severity Reaction Status Date / Time bee venom protein (honey bee) Allergy Anaphylaxis Verified 03/10/24 08:02 sharon liquor Allergy facial Uncoded 03/10/24 08:02 flushing
[2024-03-10 08:14] VITALS: RESP 16; TEMP 96.9
[2024-03-10] MEDS: LACTATED RINGERS 1,000 ML IV SCH (08:14)
[2024-03-10 08:15] LABS: Glucose,Whole Blood 117 mg/dL (70-110)
[2024-03-10] MEDS ORDERED: LIDOCAINE 1% INJ 10MG/ML (20 ML MDV) ONE (08:15)
[2024-03-10] MEDS ORDERED: PROPOFOL 10 MG/ML 20 ML VIAL IV ONE (08:15)
--- NOTE | 2024-03-10 08:29 | P.PCN ---
Date of Procedure: 03/10/24 Description of Procedure: PREOPERATIVE DIAGNOSIS: Gastroesophageal reflux disease. Morbid obesity. POSTOPERATIVE DIAGNOSIS: Gastroesophageal reflux disease. Morbid obesity. Gastritis. Gastroparesis OPERATION: Esophagogastroduodenoscopy with biopsies along esophagus, antrum and duodenum SURGEON: Kirstin Pham MD ANESTHESIA: MAC. INDICATIONS: The patient is a 59-year-old female who presents with reflux disease. Benefits and risks of the procedure were described. Informed consent was obtained. DESCRIPTION: The patient was brought into the endoscopy suite and laid in the left lateral decubitus position. An Olympus gastroscope was passed along the posterior oropharynx down to the distal esophagus where the squamocolumnar junction was encountered at 40 cm from the incisors. The stomach was entered and no bile reflux was found. Additional findings are listed below. Biopsies with cold forceps were obtained of the antrum. The first through third portion of the duodenum was examined. Retroflexion of the scope confirmed Hill grade 2 lower esophageal valve. The squamocolumnar junction demonstrated LA grade B erosive esophagitis. The stomach was desufflated. The patient tolerated the procedure well. FINDINGS: Squamocolumnar junction 40 cm from the incisors. Diaphragmatic hiatus at 40 cm. Hill grade 2 lower esophageal valve. LA grade B erosive esophagitis. Biopsies obtained Biopsies obtained of the duodenum. Chronic gastritis with biopsies obtained. Retained gastric contents as patient is on Jardiance for diabetic gastroparesis RECOMMENDATIONS: Upper endoscopy as needed. Plan - Discharge Summary New Discharge Prescriptions: Continue Gabapentin 1,200 mg PO HS Gabapentin 600 mg PO QAM Atorvastatin [Lipitor] 20 mg PO HS Omeprazole 40 mg PO HS Cerulean-3/Dha/Epa/Fish Oil [Fish Oil 1,000 mg Softgel] 1 each PO HS lamoTRIgine [LaMICtal] 100 mg PO QAM Losartan Potassium [Cozaar] 100 mg PO QAM Aspirin 81 mg PO DAILY Empagliflozin [Jardiance] 1 tab PO DAILY Black Seed Oil 1,500 mg PO DAILY Montelukast Sodium [Singulair] 10 mg PO HS Multivitamins, Thera [Multivitamin (formulary)] 1 tab PO DAILY FLUoxetine HCL [PROzac] 60 mg PO QAM Ubidecarenone [Co Q-10] 100 mg PO DAILY Chlorthalidone 50 mg PO DAILY Discharge Medication List Aspirin 81 mg PO DAILY 08/29/22 [History] Atorvastatin [Lipitor] 20 mg PO HS 08/29/22 [History] FLUoxetine HCL [PROzac] 60 mg PO QAM 08/29/22 [History] Gabapentin 1,200 mg PO HS 08/29/22 [History] Gabapentin 600 mg PO QAM 08/29/22 [History] Losartan Potassium [Cozaar] 100 mg PO QAM 08/29/22 [History] Montelukast Sodium [Singulair] 10 mg PO HS 08/29/22 [History] Multivitamins, Thera [Multivitamin (formulary)] 1 tab PO DAILY 08/29/22 [History] Cerulean-3/Dha/Epa/Fish Oil [Fish Oil 1,000 mg Softgel] 1 each PO HS 08/29/22 [History] Omeprazole 40 mg PO HS 08/29/22 [History] lamoTRIgine [LaMICtal] 100 mg PO QAM 08/29/22 [History] Chlorthalidone 50 mg PO DAILY 01/30/24 [History] Empagliflozin [Jardiance] 1 tab PO DAILY 01/30/24 [History] Ubidecarenone [Co Q-10] 100 mg PO DAILY 01/30/24 [History] Black Seed Oil 1,500 mg PO DAILY 03/06/24 [History] Follow up [facility]ment(s[facility]Ref[facility] [place] [facility] - 04/02/24 3:00 pm Patient Instructions/Handouts: Diabetic Gastroparesis (IP), Gastritis (GEN) Discharge Disposition: HOME SELF-CARE
[2024-03-10 08:49] VITALS: BP 109/62; PULSE 60
== END 2024-03-10 09:05 | disposition home or self-care (01) ==
LOC: ORWHC2ENDO 07:48
PROVIDERS: ATTEND Surgery Plastic and Reconstructive Surgery
DX: K21.00 Gastro-esophageal reflux disease with esophagitis, without bleeding (principal); K31.84 Gastroparesis; K29.70 Gastritis, unspecified, without bleeding; F31.9 Bipolar disorder, unspecified; F41.9 Anxiety disorder, unspecified; D72.820 Lymphocytosis (symptomatic); E78.5 Hyperlipidemia, unspecified; J44.9 Chronic obstructive pulmonary disease, unspecified; F17.210 Nicotine dependence, cigarettes, uncomplicated; I10 Essential (primary) hypertension; G47.33 Obstructive sleep apnea (adult) (pediatric); E66.01 Morbid (severe) obesity due to excess calories; Z68.36 Body mass index [BMI] 36.0-36.9, adult; Z90.710 Acquired absence of both cervix and uterus; Z86.73 Personal history of transient ischemic attack (TIA), and cerebral infarction without residual deficits; Z90.49 Acquired absence of other specified parts of digestive tract; Z91.51 Personal history of suicidal behavior; Z82.3 Family history of stroke; Z79.84 Long term (current) use of oral hypoglycemic drugs; Z79.82 Long term (current) use of aspirin; Z91.030 Bee allergy status; Z79.899 Other long term (current) drug therapy; Z79.02 Long term (current) use of antithrombotics/antiplatelets
CPT/HCPCS: 88305; 88342; 43239; J2003; J2704

== ENCOUNTER → 2024-04-02 | Outpatient (CLI) | payer MEDICARE ==
[2024-04-02 15:19] VITALS: BP 120/78; PULSE 84; RESP 16; TEMP 97.9; BMI 45.4
--- NOTE | 2024-04-02 15:58 | P.BASOAP ---
Subjective Progress Note Date: 04/02/24 She has large liver. She has 1 kidney. Needs 3+ weeks of 2 week diet. Labs reviewed with high WBC. Creatinine is low. Has celiac. No hiatal hernia. Otherwise has gastroparesiss. High risk Objective - Vital Signs Vital signs: Vital Signs Temp 97.9 F 04/02/24 15:10 Pulse 84 04/02/24 15:10 Resp 16 04/02/24 15:10 BP 120/78 04/02/24 15:10 Pulse Ox FiO2 Intake & Output 04/01/24 04/02/24 04/02/24 18:59 06:59 18:59 Weight 122.016 kg Assessment/Plan Plan: Date: 04/02/24 Initial Weight: Initial BMI: Current Weight: 122.016 kg Current BMI: 45.4 Type of Surgery: Total Volume in Band: Previous Volume: Volume Removed: Volume Added: Band Size:
== END ==
LOC: BARWHC3 14:25
PROVIDERS: ATTEND Surgery Plastic and Reconstructive Surgery
DX: E66.01 Morbid (severe) obesity due to excess calories (principal); Z68.42 Body mass index [BMI] 45.0-49.9, adult; Z91.030 Bee allergy status; Z88.8 Allergy status to other drugs, medicaments and biological substances
CPT/HCPCS: 99211

== ENCOUNTER → 2024-04-14 | Outpatient (CLI) | payer MEDICARE ==
[2024-04-14 13:18] VITALS: BMI 46.8
== END | disposition home or self-care (01) ==
LOC: BARWHC3 12:54
PROVIDERS: ATTEND Surgery Plastic and Reconstructive Surgery
DX: E66.01 Morbid (severe) obesity due to excess calories (principal); Z71.3 Dietary counseling and surveillance; Z91.030 Bee allergy status; Z91.048 Other nonmedicinal substance allergy status
CPT/HCPCS: 97804

== ENCOUNTER → 2024-09-19 | Outpatient (CLI) | payer MEDICARE ==
--- NOTE | 2024-09-19 19:34 | CT ---
EXAMINATION TYPE: CT ChestAbdPelvis wo con DATE OF EXAM: 09/19/2024 4:54 PM COMPARISON: Multiple prior CT studies, most recently dated 10/02/2023. CLINICAL INDICATION: Female, 59 years old with history of C64.2 RENAL CELL CANCER; [facility], follow up laiksha al cancer Technique: CT ChestAbdPelvis wo con; Multiple axial images were obtained. Two-dimensional coronal and sagittal reconstructions were obtained. Oral contrast used: without Oral Contrast CT DLP: 1607 mGycm, Automated exposure control for dose reduction was used. Findings: CHEST: LUNGS/ PLEURA: No focal consolidation, pneumothorax or pleural effusion. Stable 6 mm nodule in the le ft lower lobe (image 31/56). No new suspicious or enlarging pulmonary nodule or pulmonary mass identi fied. AIRWAY: Patent and unremarkable. HEART: Size within normal limits.Coronary artery calcifications. MEDIASTINUM: No gross evidence of adenopathy. VASCULATURE: No aortic aneurysm. Dilated main pulmonary artery, which can be associated with pulmona ry hypertension. MUSCULOSKELETAL: No acute osseous abnormalities. SOFT TISSUES/LYMPH NODES: Unremarkable. LOWER NECK: No significant findings. ABDOMEN: ABDOMEN LIVER: Diffusely hypoattenuating parenchyma. GALLBLADDER AND BILE DUCTS: Unremarkable. PANCREAS: Unremarkable. SPLEEN: Unremarkable. ADRENAL GLANDS: Unremarkable. KIDNEYS AND URETERS: Limited evaluation for recurrent/residual disease given lack of IV contrast. Wit hin these limitations, there is apparent increasing soft tissue density in the left prostatectomy bed compared to previous study 10/02/2023. Soft tissue density measures approximately 2.2 x 2.0 cm on tod ay's exam. Evaluate for nodular enhancement. Right kidney without hydronephrosis or obvious mass. PELVIS BLADDER: Unremarkable REPRODUCTIVE: The uterus is surgically absent. ABDOMEN & PELVIS STOMACH AND BOWEL: Stomach and duodenum are unremarkable. No evidence of bowel obstruction. PERITONEUM/RETROPERITONEUM: No evidence of pneumoperitoneum or free fluid. VASCULATURE: No evidence of aortic aneurysm. MUSCULOSKELETAL: No acute osseous abnormalities LYMPH NODES: No gross evidence for lymphadenopathy. SOFT TISSUE/ABDOMINAL WALL: Fat-containing anterior abdominal wall hernia, unchanged. IMPRESSION: 1. No evidence of distant metastatic disease in the chest/abdomen/pelvis. 2. Increasing soft tissue density in the left post nephrectomy bed concerning for possible recurrent disease. However, evaluation is significantly limited due to lack of IV contrast. Recommend MRI or C T utilizing IV contrast for better characterization as clinical warranted. [facility], , 09/19/2024 7:32 PM
== END | disposition home or self-care (01) ==
LOC: RADCTMAIN 15:58
PROVIDERS: ATTEND Internal Medicine
DX: C64.2 Malignant neoplasm of left kidney, except renal pelvis (principal); Z90.5 Acquired absence of kidney
CPT/HCPCS: 71250; 74176

== ENCOUNTER → 2024-12-04 | Outpatient (CLI) | payer MEDICARE ==
--- NOTE | 2024-12-04 11:30 | MM ---
Reason for Exam: Screening (asymptomatic). Last mammogram was performed 1 year(s) and 9 month(s) ago. Patient History: Menarche at age 12. Patient has no children. Left ovary removed at age 42. Hysterectomy at age 42. Postmenopausal. Other cancer, age 58. Maternal aunt had breast cancer. Risk Values: Asia 5 year model risk: 1.6%. NCI Lifetime model risk: 9.5%. Prior Study Comparison: 10/23/2014 Bilateral Screening Mammogram, Unknown. 12/07/2015 Bilateral Screening Mammogram, Unknown. 03/13/2023 Bilateral MG 3D screening mammo w/cad, [facility]. Tissue Density: The breasts are almost entirely fatty. Findings: Analyzed By CAD. Right breast: There is no suspicious group of microcalcifications or new suspicious mass. Left breast: There is no suspicious group of microcalcifications or new suspicious mass. Overall Assessment: Negative, BI-RAD 1 Management: Screening Mammogram of both breasts in [address] [facility] will attempt to contact patient to return for supplemental views and ultrasound if indicated. Patient should continue monthly self-breast exams. A clinical breast exam by your physician is recommended on an annual basis. This exam should not preclude additional follow-up of suspicious palpable abnormalities. Note on Asia scores and lifetime risk: 1. A Asia score greater than 3% is considered moderate risk. If this is the case, consider specialist referral to assess eligibility for a risk reducing agent. 2. If overall lifetime risk for the development of breast cancer is 20% or higher, the patient may qualify for future screening with alternating mammogram and breast MRI. [facility], , 12/04/2024 11:28 AM. Electronically signed and approved by: Noble Krause DO
== END | disposition home or self-care (01) ==
LOC: RADMAMWWP 09:49
PROVIDERS: ATTEND Family Medicine
DX: Z12.31 Encounter for screening mammogram for malignant neoplasm of breast (principal); R92.313 Mammographic fatty tissue density, bilateral breasts; Z80.3 Family history of malignant neoplasm of breast; Z78.0 Asymptomatic menopausal state
CPT/HCPCS: 77063; 77067